=== PATIENT | male | born 1990 | race Caucasian/White ===

== ENCOUNTER 2019-07-06 03:32 | Emergency (ER) | payer OTHER ==
[~2019-07-06] VITALS: Ht 180.3 cm; Wt 128.0 kg
[2019-07-06 03:37] VITALS: BP 162/99
[2019-07-06] MEDS ORDERED: ibuprofen tablet 400 MG TABLET PO ONE (04:15)
== END 2019-07-06 05:29 | disposition home or self-care (01) ==
LOC: ER 03:32
DX: M54.5 Low back pain (principal); J02.9 Acute pharyngitis, unspecified
CPT/HCPCS: 72100; 99284

== ENCOUNTER 2019-07-11 03:44 | Emergency (ER) | payer OTHER ==
[~2019-07-11] VITALS: Ht 332.7 cm; Wt 129.1 kg
[2019-07-11] MEDS ORDERED: LORazepam 2 mg/ml vial IM ONE (03:50)
[2019-07-11] MEDS ORDERED: haloperidol lactate 5mg/ml inj IM ONE ×2 (03:50)
[2019-07-11] MEDS ORDERED: diphenhydrAMINE 50 mg/ml inj IM ONE (03:50)
--- NOTE | 2019-07-11 03:50 | NUR ---
PT BROUGHT IN BY [employer]. HE WAS CURSING, EXPRESSING VIOLENT BEHAVIOR, DEMANDING THE GEODESIST TO TALK TO HIM. PT WAS VERY IMPULSE AND REFUSING TO SIT ON BED. [employer], SECURITY AND STAFF ASSISTED PT TO THE BED. DR. JOYNER ASSESSED PT. ORDERS PLACED FOR MEDICATION AND 4 POINT RESTRAINT. DAD AND BROTHER NEARBY. THEY ANSWERED QUESTIONS APPROPRIATLEY AND STATED THE PT IS "BIPOLAR".
--- NOTE | 2019-07-11 04:14 | NUR ---
PT NOW SLEEPING.
--- NOTE | 2019-07-11 04:16 | NUR ---
PT'S UNCLE IS HOLDEN EDOUARD HIS NUMBER IS [phone]. FATHER IS [facility] [phone]
[2019-07-11 04:23] LABS: BASOPHILS # (AUTO) 0.1 X10'3 (0-0.2); BASOPHILS % (AUTO) 0.9 % (0-1); EOSINOPHILS # (AUTO) 0.2 X10'3 (0-0.9); EOSINOPHILS % (AUTO) 1.7 % (0-6); HEMATOCRIT 47.2 % (42.0-52.0); HEMOGLOBIN 16.7 g/dl (14.0-17.9); LYMPHOCYTES # (AUTO) 2.7 X10'3 (1.1-4.8); LYMPHOCYTES % (AUTO) 29.6 % (21-51); MEAN CORPUSCULAR HEMOGLOBIN 31.9 PG (27.0-31.0); MEAN CORPUSCULAR HGB CONC 35.4 g/dL (33.0-36.5); MEAN CORPUSCULAR VOLUME 90.1 FL (78-98); MEAN PLATELET VOLUME 9.1 FL (7.4-10.4); MONOCYTES # (AUTO) 0.8 X10'3 (0-0.9); MONOCYTES % (AUTO) 8.7 % (2-12); NEUTROPHILS # (AUTO) 5.4 X10'3 (1.8-7.7); NEUTROPHILS % (AUTO) 59.1 % (42-75); PLATELET COUNT 242 X10'3 (140-440); RED BLOOD COUNT 5.24 X10'6 (4.70-6.10); RED CELL DISTRIBUTION WIDTH 12.6 % (11.5-14.5); WHITE BLOOD COUNT 9.1 X10'3 (4.5-11.0)
--- NOTE | 2019-07-11 04:27 | NUR ---
PT MOVED CLOSER TO NURSES STATION IN VIEW OF SITTER.
[2019-07-11 04:34] LABS: ALBUMIN 4.6 G/DL (3.4-5.0); ANION GAP 17 (8-16); BILIRUBIN,TOTAL 0.7 MG/DL (0.1-1.0); BLOOD UREA NITROGEN 18 MG/DL (7-18); BUN/CREATININE RATIO 13.2 (5.4-32.0); CALCIUM 9.2 MG/DL (8.5-10.1); CHLORIDE 104 MMOL/L (99-107); CREATININE 1.36 MG/DL (0.60-1.10); GLUCOSE 143 MG/DL (70-104); POTASSIUM 3.4 MMOL/L (3.5-5.1); SODIUM 141 MMOL/L (135-145); TOTAL CARBON DIOXIDE 20.5 MMOL/L (24-32); TOTAL PROTEIN 7.9 G/DL (6.4-8.2); eGFR 63 ML/MIN
[2019-07-11 04:35] LABS: URINE AMPHETAMINE SCREEN NEGATIVE (Neg); URINE BARBITUATE SCREEN NEGATIVE (Neg); URINE BENZODIAZEPINES SCREEN NEGATIVE (Neg); URINE CANNABINOID SCREEN NEGATIVE (Neg); URINE COCAINE SCREEN NEGATIVE (Neg); URINE METHADONE SCREEN NEGATIVE (Neg); URINE OPIATE SCREEN NEGATIVE (Neg); URINE PHENCYCLIDINE SCREEN NEGATIVE (Neg)
[2019-07-11 04:35] LABS: ALANINE AMINOTRANSFERASE 70 U/L (12-78); ALBUMIN/GLOBULIN RATIO 1.4 (1.1-1.5); ALKALINE PHOSPHATASE 54 IU/L (46-116); ASPARTATE AMINO TRANSFERASE 50 U/L (10-37); ETHANOL < 0.010 GM/DL (0.0-0.010)
--- NOTE | 2019-07-11 07:15 | NUR ---
CALLED LAB TO ADD UA TO TOX
--- NOTE | 2019-07-11 07:28 | NUR ---
PT SLEEPING IN BED NO DISTRESS NOTED.
--- NOTE | 2019-07-11 08:20 | NUR ---
CALLED LAB TO ADD UA TO PREVIOUS TOX SCREEN
[2019-07-11 08:46] LABS: CLARITY,URINE CLOUDY (Clear); COLOR,URINE YELLOW (Yellow); GLUCOSE, URINE NEGATIVE (Neg); KETONES,URINE 15 mg/dl (Neg); LEUKOCYTE ESTERASE ,URINE NEGATIVE (Neg); NITRITES, URINE NEGATIVE (Neg); OCCULT BLOOD,URINE NEGATIVE (Neg); PROTEIN,URINE 30 mg/dl (Neg)
[2019-07-11 09:01] LABS: UA COLLECTION TYPE STRAIGHT CATH
--- NOTE | 2019-07-11 09:05 | NUR ---
Pt is resting with even and unlabored respirations. Pt has no signs of distress at this time. Pt remains in direct line of sight of the nurse's station.
[2019-07-11 09:22] LABS: AMORPHOUS URATES 4+; BACTERIA,URINE NONE SEEN /HPF (Neg); RBC,URINE NONE SEEN /HPF (0-2); SQUAMOUS EPITHELIAL CELL,UR FEW /LPF (FEW); WBC,URINE 0-4 /HPF (0-4)
[2019-07-11 09:23] LABS: CAL OXALATE CRYSTALS 2+ /HPF (NEGATIVE); MUCUS STRANDS FEW /LPF (Neg)
--- NOTE | 2019-07-11 10:12 | NUR ---
Pt resting, even and unlabored respirations. Continuing to monitor the patient.
[2019-07-11 10:54] VITALS: BP 124/78
--- NOTE | 2019-07-11 11:12 | NUR ---
Pt resting with even and unlabored respirations. Pt has stable vitals and is NSR on tele monitor.
--- NOTE | 2019-07-11 11:45 | NUR ---
Pt awake at this time. Pt's Uncle and his Father are here at this time and are in the room with the patient. Pt given warm blankets.
--- NOTE | 2019-07-11 13:03 | NUR ---
PT MOVED FROM BED 9 TO BED 15
--- NOTE | 2019-07-11 18:18 | NUR ---
Accepted at [facility], will picking crew supervisor at ~[phone]
[2019-07-11] MEDS ORDERED: LORazepam 1 MG tablet PO ONE (21:50)
[2019-07-11] MEDS ORDERED: diphenhydrAMINE 25mg capsule PO ONE (21:50)
== END 2019-07-11 22:05 ==
LOC: ER 03:45
DX: F29 Unspecified psychosis not due to a substance or known physiological condition (principal); F31.9 Bipolar disorder, unspecified; F15.90 Other stimulant use, unspecified, uncomplicated; F17.210 Nicotine dependence, cigarettes, uncomplicated
CPT/HCPCS: 36415; 80053; 80305; 80320; 81001; 84443; 85025; 96372; 99285; J1200; J1630; J2060; Q0163